=== PATIENT | male | born 1995 | race Asian ===

== ENCOUNTER 2021-04-29 07:42 | Emergency (ER) | payer BC ==
[2021-04-29] MEDS ORDERED: ACETAMINOPHEN 325 MG TAB PO ONE (11:33)
[2021-04-29] MEDS ORDERED: ONDANSETRON 4 MG ODT TAB PO ONE (11:33)
--- NOTE | 2021-04-29 12:04 | Emergency Department Report ---
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 He has associated chills, fever, nausea, shortness of breath. He denies any vomiting, diarrhea, cough, ear pain, sore throat, chest pain, abdominal pain. He denies any known sick contacts or recent travel. He has not received the COVID-19 vaccine. Has not been tested for COVID-19. No past medical history. He is a non-smoker. He endorses occasional alcohol use. - Related Data Previous Rx's Medication Instructions Recorded Last Taken Type Butalb/Acetaminophen/Caffeine 1 cap PO Q8HR PRN #12 cap 04/29/21 Unknown Rx [Fioricet 50-300-40 mg CAP] Ondansetron [Zofran Odt] 4 mg PO Q8HR PRN #10 tab.rapdis 04/29/21 Unknown Rx guaiFENesin ER [Mucinex ER] 600 mg PO Q12H #14 tablet.er 04/29/21 Unknown Rx Allergies Allergy/AdvReac Type Severity Reaction Status Date / Time No Known Allergies Allergy Unverified 04/29/21 08:55 ED Review of Systems ROS: Stated complaint: GENERAL SICKNESS,HEADACHE Other details as noted in HPI Comment: All other systems reviewed and negative ED Past Medical Hx - Past Medical History Previous Medical History?: No - Surgical History Past Surgical History?: No - Social History Smoking Status: Never Smoker Substance Use Type: Alcohol - Medications Home Medications: Home Medications Medication Instructions Recorded Confirmed Last Taken Type Butalb/Acetaminophen/Caffeine 1 cap PO Q8HR PRN #12 cap 04/29/21 Unknown Rx [Fioricet 50-300-40 mg CAP] Ondansetron [Zofran Odt] 4 mg PO Q8HR PRN #10 tab.rapdis 04/29/21 Unknown Rx guaiFENesin ER [Mucinex ER] 600 mg PO Q12H #14 tablet.er 04/29/21 Unknown Rx ED Physical Exam - General Limitations: Language Barrier General appearance: alert, in no apparent distress - Head Head exam: Present: atraumatic, normocephalic - Eye Eye exam: Present: normal appearance - ENT ENT exam: Present: mucous membranes moist - Respiratory Respiratory exam: Present: normal lung sounds bilaterally. Absent: respiratory distress, wheezes, rales, rhonchi, stridor, chest wall tenderness, accessory muscle use, decreased breath sounds, prolonged expiratory - Cardiovascular Cardiovascular Exam: Present: regular rate, normal rhythm, normal heart sounds. Absent: systolic murmur, diastolic murmur, rubs, gallop - Neurological Exam Neurological exam: Present: alert, oriented X3 - Psychiatric Psychiatric exam: Present: normal affect, normal mood - Skin Skin exam: Present: warm, dry, intact ED Course Vital Signs 04/29/21 04/29/21 08:49 13:45 Temperature 101 F H 99.9 F H Pulse Rate 92 H 85 Respiratory 20 18 Rate Blood Pressure 100/60 Blood Pressure 105/57 [Right] O2 Sat by Pulse 99 97 Oximetry ED Medical Decision Making - Lab Data Result diagrams: 04/29/21 12:12 04/29/21 12:12 Lab Results 04/29/21 04/29/21 Range/Units 12:12 12:12 WBC 5.6 (4.5-11.0) K/mm3 RBC 5.16 H (3.65-5.03) M/mm3 Hgb 15.1 (11.8-15.2) gm/dl Hct 45.3 (35.5-45.6) % MCV 88 (84-94) fl MCH 29 (28-32) pg MCHC 33 (32-34) % RDW 13.4 (13.2-15.2) % Plt Count 250 (140-440) K/mm3 Lymph % (Auto) 6.6 L (13.4-35.0) % Tripp % (Auto) 8.2 H (0.0-7.3) % Eos % (Auto) 0.1 (0.0-4.3) % Baso % (Auto) 0.5 (0.0-1.8) % Lymph # (Auto) 0.4 L (1.2-5.4) K/mm3 Tripp # (Auto) 0.5 (0.0-0.8) K/mm3 Eos # (Auto) 0.0 (0.0-0.4) K/mm3 Baso # (Auto) 0.0 (0.0-0.1) K/mm3 Seg Neutrophils % 84.6 H (40.0-70.0) % Seg Neutrophils # 4.7 (1.8-7.7) K/mm3 Sodium 138 (137-145) mmol/L Potassium 4.2 (3.6-5.0) mmol/L Chloride 100.5 (98-107) mmol/L Carbon Dioxide 29 (22-30) mmol/L Anion Gap 13 mmol/L BUN 9 (9-20) mg/dL Creatinine 0.7 L (0.8-1.3) mg/dL Estimated GFR > 60 ml/min BUN/Creatinine Ratio 13 % Glucose 87 (75-100) mg/dL Calcium 9.4 (8.4-10.2) mg/dL Total Bilirubin 0.30 (0.1-1.2) mg/dL AST 30 (5-40) units/L ALT 32 (7-56) units/L Alkaline Phosphatase 84 (35-129) units/L Total Protein 7.4 (6.3-8.2) g/dL Albumin 4.7 (3.9-5) g/dL Albumin/Globulin Ratio 1.7 % Vital Signs 04/29/21 04/29/21 08:49 13:45 Temperature 101 F H 99.9 F H Pulse Rate 92 H 85 Respiratory 20 18 Rate Blood Pressure 100/60 Blood Pressure 105/57 [Right] O2 Sat by Pulse 99 97 Oximetry - Radiology Data Radiology results: report reviewed Ordering Physician: OPAL DEE Date of Service: 04/29/21 Procedure(s): XR chest routine 2V Accession Number(s): [id number] cc: OPAL DEE Fluoro Time In Minutes: CHEST 2 VIEWS INDICATION / CLINICAL INFORMATION: Fever and shortness of breath. COMPARISON: None available. FINDINGS: SUPPORT DEVICES: None. HEART / MEDIASTINUM: The heart size and pulmonary vasculature are normal. LUNGS / PLEURA: No significant pulmonary or pleural abnormality. No pneumothorax. ADDITIONAL FINDINGS: No significant additional findings. IMPRESSION: No acute findings. Signer Name: Brant Amos MD Signed: 04/29/2021 12:37 PM Workstation Name: [id number] Transcribed By: RT Dictated By: Brant Amos MD Electronically Authenticated By: Brant Amos MD Signed Date/Time: 04/29/211236 DD/ 36 TD/TT: - Medical Decision Making Ms. 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 He has associated chills, fever, nausea, shortness of breath. He denies any vomiting, diarrhea, cough, ear pain, sore throat, chest pain, abdominal pain. He denies any known sick contacts or recent travel. He has not received the COVID-19 vaccine. Has not been tested for COVID-19. No past medical history. He is a non-smoker. He endorses occasional alcohol use. Initial vitals with fever which improved upon Tylenol administration. No abnormality on physical examination as documented in chart. Labs are normal. Chest x-ray with no acute process. Patient given 1 L normal saline prior to my examination. Symptoms could be related to viral URI. Given that we are in a COVID-19 pandemic, discussed the possibility of COVID-19 with patient, discussed outpatient testing, discussed self quarantine, discussed return precautions. Patient does not meet hospital criteria for COVID-19 admission. Patient given prescriptions for symptomatic relief. Advised patient Please take medication as prescribed. Please increase your fluid intake over the next several days. Follow-up with a primary care doctor for reexamination. Return to emergency room immediately for any new or worsening symptoms including but not limited to difficulty breathing, shortness of breath, severe chest pain, unable to tolerate by mouth intake, etc. recommend for you to get outpatient COVID-19 testing and quarantine as necessary. Critical care attestation.: If time is entered above; I have spent that time in minutes in the direct care of this critically ill patient, excluding procedure time. ED Disposition Clinical Impression: Upper respiratory infection Qualifiers: URI type: unspecified URI Qualified Code(s): J06.9 - Acute upper respiratory infection, unspecified Disposition: TO HOME OR SELFCARE Is pt being admited?: No Does the pt Need Aspirin: No Condition: Stable Instructions: COVID-19, Viral Respiratory Infection Additional Instructions: Please take medication as prescribed. Please increase your fluid intake over the next several days. Follow-up with a primary care doctor for reexamination. Return to emergency room immediately for any new or worsening symptoms including but not limited to difficulty breathing, shortness of breath, severe chest pain, unable to tolerate by mouth intake, etc. recommend for you to get outpatient COVID-19 testing and quarantine as necessary. Mercedes la medicacin segn lo prescrito. Aumente la ingesta de lquidos [place] los prximos carranza. [place] un seguimiento con un mdico de atencin primaria para un nuevo examen. Regrese a la lexie de emergencias de inmediato por cualquier sntoma nuevo o que empeore, que incluyen, entre otros, dificultad para resp irar, falta de aliento, dolor de pecho antonio, incapacidad para tolerar la ingestin oral, etc.Recomiende que se realice gilmer prueba de COVID-19 para pacientes ambulatorios y que se ponga en cuarentena segn sea necesario . Prescriptions: Butalb/Acetaminophen/Caffeine [Fioricet 50-300-40 mg CAP] 1 cap PO Q8HR PRN #12 cap PRN Reason: headache guaiFENesin ER [Mucinex ER] 600 mg PO Q12H #14 tablet.er Ondansetron [Zofran Odt] 4 mg PO Q8HR PRN #10 tab.rapdis PRN Reason: nausea/vomiting Referrals: ROSAMARIA GUPTA MD [Staff Physician] - 2-3 Days Time of Disposition: 13:15 Print Language: PANAMANIAN
--- NOTE | 2021-04-29 12:47 | XRay Report ---
CHEST 2 VIEWS INDICATION / CLINICAL INFORMATION: Fever and shortness of breath. COMPARISON: None available. FINDINGS: SUPPORT DEVICES: None. HEART / MEDIASTINUM: The heart size and pulmonary vasculature are normal. LUNGS / PLEURA: No significant pulmonary or pleural abnormality. No pneumothorax. ADDITIONAL FINDINGS: No significant additional findings. IMPRESSION: No acute findings. Signer Name: Brant Amos MD Signed: 04/29/2021 12:37 PM Workstation Name: [id number]
[2021-04-29 12:56] LABS: Alanine Aminotransferase 32 units/L (7-56); Albumin 4.7 g/dL (3.9-5); Blood Urea Nitrogen 9 mg/dL (9-20); Calcium 9.4 mg/dL (8.4-10.2); Hemolysis Index 9
[2021-04-29 13:01] LABS: BUN/Creatinine Ratio 13
[2021-04-29 13:07] LABS: Basophils % (Auto) 0.5 % (0.0-1.8); Eosinophils % (Auto) 0.1 % (0.0-4.3); Hematocrit 45.3 % (35.5-45.6); Hemoglobin 15.1 gm/dl (11.8-15.2); Lymphocytes # (Auto) 0.4 K/mm3 (1.2-5.4); Lymphocytes % (Auto) 6.6 % (13.4-35.0); Mean Corpuscular HGB Conc 33 % (32-34); Mean Corpuscular Volume 88 fl (84-94); Monocytes # (Auto) 0.5 K/mm3 (0.0-0.8); Monocytes % (Auto) 8.2 % (0.0-7.3); Platelet Count 250 K/mm3 (140-440); Red Blood Count 5.16 M/mm3 (3.65-5.03); Red Cell Distribution Width 13.4 % (13.2-15.2)
[2021-04-29 13:46] VITALS: BP 105/57
== END 2021-04-29 14:33 | disposition home or self-care (01) ==
LOC: ED 07:42
DX: J06.9 Acute upper respiratory infection, unspecified (principal); Z72.89 Other problems related to lifestyle; Z79.899 Other long term (current) drug therapy
CPT/HCPCS: 36415; 71046; 80053; 85025; 99284; Q0162